=== PATIENT | female | born 1970 | race Two or more races ===

== ENCOUNTER 2019-10-22 20:22 | Emergency (ER) | payer OTHER ==
[~2019-10-22] VITALS: Ht 152.4 cm; Wt 77.1 kg
[2019-10-22 20:35] VITALS: BP 127/82
--- NOTE | 2019-10-22 20:35 | NUR ---
ED Nurse Note: Pt walked into ED from home for c/o abdominal discomfort and longer than normal menstrual cycle. Pt states she began period on the and bleeding is still consistent which is not normal for her. Pt also reports lower abdominal pain which is cramping in nature and uncomfortabe. Pt is aaox4, no cardiac or respiratory distress noted.
[2019-10-22 21:35] LABS: BILIRUBIN, URINE NEGATIVE (NEGATIVE); GLUCOSE, URINE (UA) NEGATIVE (NEGATIVE); KETONES,URINE 1+ (NEGATIVE); LEUKOCYTE ESTERASE ,URINE 2+ (NEGATIVE); NITRITE,URINE POSITIVE (NEGATIVE); PH,URINE 5 (4.5-8.0); PROTEIN,URINE 3+ (NEGATIVE); UROBILINOGEN,URINE 1 MG/DL (0.0-1.0)
[2019-10-22 21:36] LABS: APPEARANCE,URINE SLIGHTLY CLOUDY; COLOR,URINE YELLOW
[2019-10-22 21:40] VITALS: BP 125/96
--- NOTE | 2019-10-22 21:40 | NUR ---
ER DISCHARGE NOTE: Patient is cleared to be discharged per ERMD, pt is aox4, on room air, with stable vital signs. pt was given dc instructions, pt was able to verbalize understanding, pt id band removed without complications. pt is able to ambulate with steady gait. pt took all belongings.
--- NOTE | 2019-10-22 22:45 | Emergency Room Report ---
History of Present Illness General Chief Complaint: Vaginal Source: Patient Present Illness HPI Patient presents with complaints of abnormal vaginal bleeding over the past 2 weeks She reports that she does not feel is very heavy however has been consistent Patient had similar problem last year was found to have fibroids Patient was also trialed on hormone pills last year Reports that she had a biopsy but there was no sample that was taken at that time She was doing better intermittently having abnormal menstrual cycles however after her last one in August She started in September and feels that for the past 2 weeks has been more consistent Denies any lightheadedness denies any chest pain or shortness of breath she has some mild discomfort in the suprapubic area denies any dysuria or frequency Patient reports that she saw her primary physician recently yesterday was told that her hemoglobin level was normal and patient has been given referral to [facility] Allergies: Coded Allergies: No Known Allergies (Unverified , 10/22/19) Patient History Past Medical History: see triage record Last Menstrual Period: 10/16/19 Now: No : 2 Para: 2 Reviewed Nursing Documentation: PMH: Agreed; PSxH: Agreed Nursing Documentation-PMH Past Medical History: No Stated History Hx Cardiac Problems: No - anemia; fribroids Review of Systems All Other Systems: negative except mentioned in HPI Physical Exam Vital Signs Date Time Temp Pulse Resp B/P (MAP) Pulse Ox O2 Delivery O2 Flow Rate FiO2 10/22/19 20:26 97.9 72 17 127/82 (97) 98 Room Air Sp02 EP Interpretation: reviewed, normal General Appearance: well appearing, no apparent distress Head: normocephalic, atraumatic Eyes: bilateral eye PERRL, bilateral eye EOMI ENT: hearing grossly normal, normal pharynx, TMs + canals normal, uvula midline Neck: full range of motion, supple, no meningismus, no bony tend Respiratory: lungs clear, normal breath sounds, no rhonchi, no respiratory distress, no retraction, no accessory muscle use Cardiovascular #1: normal peripheral pulses, regular rate, rhythm, no edema, no gallop, no JVD, no murmur Gastrointestinal: normal bowel sounds, non tender, soft, no mass, no organomegaly, non-distended, no guarding, no hernia, no pulsatile mass, no rebound Genitourinary: no CVA tenderness Musculoskeletal: normal inspection Neurologic: motor strength/tone normal, dress marker III-XII nml as tested, oriented x3 , sensory intact, responsive Psychiatric: mood/affect normal Skin: no rash Lymphatic: normal inspection, no adenopathy Medical Decision Making Diagnostic Impression: Primary Impression: dysfunctional uterine bleeding ER Course Multiple differentials in consideration Patient is not Reports that her mom went through menopause when she was 50 Patient's discomfort is also minimal my suspicion for Torsion is low Patient has had appropriate outpatient follow-up I feel that the patient is a candidate for continued follow-up With gynecology specialty referral Labs Test 10/22/19 20:50 Urine Color Yellow Urine Appearance Slightly cloudy Urine pH 5 (4.5-8.0) Urine Specific [place] 1.025 (1.005-1.035) Urine Protein 3+ (NEGATIVE) Urine Glucose (UA) Negative (NEGATIVE) Urine Ketones 1+ (NEGATIVE) Urine Blood 5+ (NEGATIVE) Urine Nitrite Positive (NEGATIVE) Urine Bilirubin Negative (NEGATIVE) Urine Urobilinogen 1 MG/DL (0.0-1.0) Urine Leukocyte Esterase 2+ (NEGATIVE) Urine RBC 20-30 /HPF (0 - 2) Urine WBC 10-15 /HPF (0 - 2) Urine Squamous Epithelial Cells Few /LPF (NONE/OCC) Urine Bacteria Moderate /HPF (NONE) Urine HCG, Qualitative Negative (NEGATIVE) Last Vital Signs Date Time Temp Pulse Resp B/P (MAP) Pulse Ox O2 Delivery O2 Flow Rate FiO2 10/22/19 21:40 97.9 72 17 125/96 98 Room Air Status: improved Disposition: HOME, SELF-CARE Condition: Stable Referrals: NON PHYSICIAN (PCP) Patient Instructions: Abnormal Uterine Bleeding Additional Instructions: Patient is provided with the discharge instructions notified to follow up with primary doctor in the next 2-3 days otherwise return to the er with any worsening symptoms. Please note that this report is being documented using [employer] technology. This can lead to erroneous entry secondary to incorrect interpretation by the dictating instrument. Salome Trivedi DO Oct 22, 2019 22:45
== END 2019-10-22 21:40 | disposition home or self-care (01) ==
LOC: EMR 20:55
DX: N93.8 Other specified abnormal uterine and vaginal bleeding (principal)
CPT/HCPCS: 81003; 81025; 87086; 99283